=== PATIENT | female | born 1950 | race Caucasian/White ===

== ENCOUNTER 2024-11-12 18:02 | Emergency (ER) | payer MEDICARE, OTHER, SELFPAY ==
[2024-11-12 18:27] VITALS: BP 119/79
[2024-11-12 18:50] LABS: Hematocrit 36.5 % (37.0-47.0); Hemoglobin 12.3 g/dL (12.0-16.0); Mean Corp Hgb Conc. 33.7 g/dL (33.0-37.0); Mean Corpuscular Volume 89.0 fL (81.0-99.0); Nucleated Red Blood Cells % 0 %; Platelet Count 218 10^3/uL (130-400); Red Cell Dist. Width 13.4 % (11.5-14.5)
[2024-11-12 19:12] LABS: ALT (SGPT) 27 U/L (0-35); AST (SGOT) 24 U/L (14-36); Albumin 4.3 g/dl (3.5-5.0); Alkaline Phosphatase 102 U/L (38-126); Blood Urea Nitrogen 25 mg/dl (7-17); Calcium 10.5 mg/dl (8.4-10.2); Carbon Dioxide 24 mmol/L (22-30); Glucose 182 mg/dl (70-99); Total Protein 7.1 g/dl (6.3-8.2); eGFR 46.91
[2024-11-12 19:17] VITALS: BP 134/70
[2024-11-12 19:19] LABS: Chloride 107 mmol/L (98-107); Potassium 4.9 mmol/L (3.5-5.1); Sodium 135 mmol/L (135-145)
--- NOTE | 2024-11-12 19:43 | ED.GENMED ---
History of Present Illness
General
Chief Complaint: Head Injury
Time Seen by Provider: 11/12/24 19:05
History of Present Illness
History of Present Illness:
74-year-old female presents to the emergency department for evaluation of head and neck pain after a mechanical fall. She states she was going to the bathroom and abruptly became dizzy, tried to support herself but ended up falling to the ground
striking the back of her head on the ground. No reported LOC. She reports continued dizziness at this time as well as an intense headache. Denies any chest pain or shortness of breath. She is anticoagulated on Eliquis. No upper or lower
extremity paresthesias
Past History
Past History
ED Past Medical History: Arrthythmia, GERD, HTN and IDDM
ED Past Surgical History: Cholecystectomy and Gynecological (Oophorectomy)
Social History
Tobacco: Non-smoker
Alcohol: None
Personal:
Living: with family
Employment: Retired
Family History
Family History: Other (Noncontributory)
Review of Systems
Review of Systems
Allergies reviewed?: Yes
All Other Systems: ROS reviewed and negative except as documented in HPI and ROS
Phy Exam
Physical Exam
Physical Exam:
GEN: Well appearing, NAD, WDWN
HEENT: Oral mucosa moist, no scleral icterus, no nasal congestion. Faint laceration to the posterior midline scalp with no active bleeding, no cephalohematoma, no significant midline cervical, thoracic, or lumbar spinal tenderness
Cardiac: Regular rate
Lung: No respiratory distress, no tachypnea
MSK: No gross deformity or injuries
Skin: Good color, no pallor or jaundice, no rashes
Neuro: AO x3; CN II-XII grossly intact. BUE strength 5/5 in all miller, sensation intact and symmetric. BLE strength 5/5 in all miller, sensation intact and symmetric. Horizontal nystagmus noted when upright, resolves at rest
Psych: Calm, cooperative
Course
Orders/Labs/Results
Orders:
Orders
11/12/24
CR Shoulder, Trauma - Right Urgent
11/12/24 18:26
CT Cervical Spine W/o Iv Contr Urgent
Comment:
Reason For Exam: neck pain after fall
CT Head W/o Iv Contrast Urgent
Comment:
Reason For Exam: fall hit head on eliquis
11/12/24 18:32
EKG [Electrocardiogram (*1)] Urgent
Reason for Study: Vertigo / Dizzy
EKG- Treatment ONCE
11/12/24 18:38
CMP [Comprehensive Metabolic Panel] Urgent
Complete Blood Count/With Diff Urgent
11/12/24 19:27
Meclizine [Antivert] 12.5 mg PO NOW STA
Abnormal Lab Results
11/12/24
18:38
RBC 4.10 L 10^6/uL
(4.20-5.40)
Hct 36.5 L %
(37.0-47.0)
MPV 11.4 H fL
(7.4-10.4)
Absolute Neuts (auto) 7.0 H 10^3/uL
(1.4-6.5)
Absolute Monos (auto) 0.7 H 10^3/uL
(0.1-0.6)
Lymphocytes % 19.4 L %
(20.5-51.1)
BUN 25 H mg/dl
(7-17)
Creatinine 1.2 H mg/dL
(0.6-1.0)
Glucose 182 H mg/dl
(70-99)
Calcium 10.5 H mg/dl
(8.4-10.2)
11/12/24 18:38
11/12/24 18:38
Vital Signs
Initial and Last Documented VS:
Initial Vital Signs
Temp Pulse Resp BP Pulse Ox
98.9 F 78 18 119/79 98
11/12/24 18:27 11/12/24 18:27 11/12/24 18:27 11/12/24 18:27 11/12/24 18:27
Last Documented Vital Signs
Temp Pulse Resp BP Pulse Ox
98.9 F 73 11 117/58 93
11/12/24 18:27 11/12/24 20:15 11/12/24 20:15 11/12/24 20:00 11/12/24 20:15
Procedures
Laceration Closure
Posterior Scalp:
Status of Wound: clean
Size of Wound in cm: 1.5
Description of Wound Edges: sharp
Preparation: cleaned with saline
Anesthesia: 1% Lidocaine with epi
Wound exploration: explored to base- no FB
Type of Closure: single layer closure
Skin Closure Material: skin coco
Number of sutures: 2
MDM/Problems Addressed
MDM/Problems Addressed:
Unclear etiology to the patient's dizzy spells she is not orthostatic while in the emergency department. She is quite functionally declined compared to her normal and requires ambulatory assistance with a walker. Her imaging is grossly
unremarkable, scalp laceration repaired with coco at the bedside. Labs are reassuring. She is suitable for discharge to home
*Pulse Oximetry
SaO2: 98
Oxygen Mode of Delivery: Room air
Patient hypoxic: no
*Critical Care Note
Total Time (30-74mins, 75-104mins- exclusive of procedures): Not Applicable
ED Attending Note
-
Portions of this chart may have been created with voice recognition software.� Occasional wrong word or��sound alike� substitutions may have occurred due to the inherent limitations of voice recognition software.
Discharge Plan
Departure
Patient Disposition: Home (Routine Discharge)
Date of Disposition: 11/12/24
Time of Disposition: 20:33
Patient with high blood pressure during this ER visit?: No
Discharge Problem:
Fall, Dizziness, Laceration of scalp
Instructions: Preventing falls in adults, Minor Head Injury (DC)
Prescriptions:
No Action
levothyroxine 75 mcg tablet
75 mcg PO DAILY
propranolol 80 mg capsule,extended release 24hr
80 mg PO DAILY
zolpidem 5 mg tablet
5 mg PO HS
Patient Comments:
01/21/2023: last filled 01/16/23, 30 tabs for [address] [facility]#[id number]
Botox 200 unit Recon Soln
200 unit IM .[id number]
insulin degludec [Tresiba FlexTouch U-100] 100 unit/mL (3 mL) Insulin Pen
16 unit SC DAILYPRN PRN (Reason: if bs >140)
Atrovent HFA 17 mcg/actuation Hfa Aerosol Inhaler
2 puff inhalation R Q4HPRN PRN (Reason: SOB,COUGH,WHEEZE) Qty: 12.9 2RF
ferrous sulfate 325 mg (65 mg iron) tablet
325 mg PO Q OTHER DAY Qty: 20 1RF
fluticasone propionate 220 mcg/actuation Hfa Aerosol Inhaler
2 puff inhalation R BID Qty: 12 2RF
guaifenesin 600 mg Tablet Extended Release 12hr
600 mg PO Q12 Qty: 10 0RF
pantoprazole 40 mg Tablet,Delayed Release (Dr/Ec)
40 mg PO DAILY Qty: 30 1RF
benzonatate 100 mg Capsule
100 mg PO TIDPRN PRN (Reason: cough) Qty: 20 0RF
Zenpep 10,000-32,000 -42,000 unit Capsule,Delayed Release(Dr/Ec)
3 cap PO ACHS Qty: 120 1RF
glimepiride 4 mg tablet
2 mg PO BID Qty: 0 0RF
gabapentin 300 mg capsule
300 mg PO BID Qty: 0 0RF
budesonide 3 mg Capsule,Delayed,Extend.Release
9 mg PO DAILY Qty: 120 1RF
Referrals:
Juanis Ramirez MD [Family Provider]
Activity Restrictions/Additional Instructions:
For the wound: Keep dry for the next 24 hours then each day you should wash gently with soap and water. The wound does not need to be covered and less you are bleeding in which case apply a light bandage or stocking over the head. Follow-up with
your primary doctor or urgent care in 5 to 7 days for staple removal
Please check your blood pressure each morning before taking your medication, if your blood pressure is below 120 systolic (the top number), do not take your blood pressure medicine that day.
Interventions
Interventions:
*Risk Screen - Suicide Last Done: 11/12/24 18:27
*General Assessment Last Done: 11/12/24 18:27
*Neglect/Abuse Screening Last Done: 11/12/24 18:27
*ED- Fall Risk Assessment Last Done: 11/12/24 18:27
*ED COVID-19 Vaccine History Last Done: 11/12/24 18:27
*Nursing Disposition Last Done: 11/12/24 20:45
ED-Musculoskeletal Assessment Last Done: 11/12/24 19:11
ED- Neurological Assessment Last Done: 11/12/24 19:11
ED-Skin Assessment Last Done: 11/12/24 19:11
Discharge Date and Time
Discharge Date/Time: 11/12/24 21:06
Print Language: SERBIAN
[2024-11-12] MEDS: ANTIVERT 12.5 MG PO (19:46)
[2024-11-12 20:00] VITALS: BP 117/58
== END 2024-11-12 21:06 | disposition home or self-care (01) ==
LOC: EMR 18:02
PROVIDERS: EMERGENCY PHYSICIAN Emergency Medicine; FAMILY PHYSICIAN Internal Medicine
DX: R42 Dizziness and giddiness (principal); S01.01XA Laceration without foreign body of scalp, initial encounter; W19.XXXA Unspecified fall, initial encounter; K21.9 Gastro-esophageal reflux disease without esophagitis; I10 Essential (primary) hypertension; E11.9 Type 2 diabetes mellitus without complications; Z79.01 Long term (current) use of anticoagulants; Z79.4 Long term (current) use of insulin; Z90.49 Acquired absence of other specified parts of digestive tract; Z90.721 Acquired absence of ovaries, unilateral
CPT/HCPCS: 99284; 12001; 70450; 72125; 73030; 80053; 85025; 93005